=== PATIENT | female | born 1980 ===

== ENCOUNTER 2017-01-04 01:01 | Emergency (ER) | payer OTHER ==
[2017-01-04 01:36] VITALS: BP 102/61; PULSE 79; RESP 16; TEMP 98.6; O2SAT 100
[2017-01-04] MEDS ORDERED: Sodium Chloride 0.9% 1,000 ML IV STA (01:54)
[2017-01-04] MEDS ORDERED: Iohexol 240 (50 ml) PO ONE (02:03)
[2017-01-04 02:34] LABS: ALB/GLOB RATIO 1.3 (1.0-2.1); ALKALINE PHOSPHATASE 98 U/L (38-126); ALT/SGPT 44 U/L (9-52); AST/SGOT 30 U/L (14-36); BILIRUBIN,TOTAL 0.2 mg/dl (0.2-1.3); BLOOD UREA NITROGEN 9 mg/dl (7-17); CALCIUM 8.9 mg/dL (8.4-10.2); CARBON DIOXIDE 24 mmol/L (22-30); CHLORIDE 107 mmol/L (98-107); GFR AFRICAN-AMERICAN > 60; GLUCOSE,RANDOM 99 mg/dL (65-105); LIPASE 45 U/L (23-300); SODIUM 142 mmol/l (132-148); TOTAL PROTEIN 6.8 G/DL (6.3-8.2)
[2017-01-04 03:48] LABS: BASO % 0.5 % (0.0-2.0); EOS # 0.2 K/uL (0.0-0.7); EOS % 3.1 % (0.0-4.0); HEMATOCRIT 34.5 % (34.0-47.0); LYMPH # 1.6 K/uL (1.0-4.3); LYMPH % 20.7 % (20.0-40.0); MEAN CELL VOLUME 84.3 fl (81.0-99.0); MEAN CORPUSCULAR HGB CONC 34.4 g/dL (33.0-37.0); MEAN PLATELET VOLUME 9.1 fl (7.2-11.7); MONO # 0.8 K/uL (0.0-0.8); MONO % 10.5 % (0.0-10.0); NEUT # 5.1 K/uL (1.8-7.0); NEUT % 65.2 % (50.0-75.0); RED CELL DISTRIBUTION WIDTH 13.4 % (11.5-14.5); WHITE BLOOD COUNT 7.8 K/uL (4.8-10.8)
[2017-01-04 04:03] LABS: RBC URINE 4 /hpf (0-3); URINE BACTERIA RARE (<OCC); URINE BILIRUBIN NEGATIVE (NEGATIVE); URINE BLOOD SMALL (NEGATIVE); URINE COLOR YELLOW (YELLOW); URINE GLUCOSE (UA) NEG (Normal); URINE KETONE NEGATIVE (NEGATIVE); URINE LEUKOCYTE ESTERASE NEG Leu/uL (Negative); URINE PROTEIN 100 mg/dL (NEGATIVE); URINE UROBILINOGEN 0.2-1.0 mg/dL (0.2-1.0); WBC URINE 4 /hpf (0-5)
--- NOTE | 2017-01-04 04:11 | ED PDOC ---
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 She describes the pain as cramping and also complains of nausea, multiple episodes of non bloody non bilious vomiting, and non bloody diarrhea. Patient reports that she recently returned from a brief visit to [place], [place] and visited an urgent care yesterday upon worsening of symptoms. She claims that she was advised to come in to the ED for a CAT scan, but felt that it was over-zealous at the time. Patient also notes associated headache, fever, and chills and reports that symptoms have consistently worsened. She denies any further symptoms or complaints. PMD: Provider TBD, Past Medical History Reviewed: Historical Data, Nursing Documentation, Vital Signs Vital Signs: Last Vital Signs Temp 98.6 F 01/04/17 01:34 Pulse 79 01/04/17 01:34 Resp 16 01/04/17 01:34 BP 102/61 01/04/17 01:34 Pulse Ox 100 01/04/17 04:44 - Medical History PMH: [place]'s Syndrome - Surgical History Surgical History: Appendectomy - Family History Family History: States: No Known Family Hx - Social History Current smoker - smoking cessation education provided: No Alcohol: Social Drugs: Denies - Home Medications Home Medications: Ambulatory Orders Medication Instructions Recorded Dicyclomine [Bentyl] 20 mg PO Q12 PRN #20 tab 01/04/17 Ondansetron ODT [Zofran ODT] 4 mg PO Q6 PRN #16 odt 01/04/17 - Allergies Allergies/Adverse Reactions: Allergies Allergy/AdvReac Type Severity Reaction Status Date / Time No Known Allergies Allergy Verified 01/04/17 01:33 Review of Systems ROS Statement: Except As Marked, All Systems Reviewed And Found Negative Constitutional: Positive for: Fever, Chills Gastrointestinal: Positive for: Nausea, Vomiting, Abdominal Pain, Diarrhea Neurological: Positive for: Headache Physical Exam - Reviewed Nursing Documentation Reviewed: Yes Vital Signs Reviewed: Yes - Physical Exam Appears: Positive for: Uncomfortable Head Exam: Positive for: ATRAUMATIC, NORMOCEPHALIC Skin: Positive for: Normal Color, Warm, Dry Eye Exam: Positive for: Normal appearance, EOMI, PERRL ENT: Positive for: Other (mucous membranes tacky) Neck: Positive for: Normal, Painless ROM, Supple Cardiovascular/Chest: Positive for: Regular Rate, Rhythm. Negative for: Murmur Respiratory: Positive for: Normal Breath Sounds. Negative for: Respiratory Distress Gastrointestinal/Abdominal: Positive for: Tenderness (Diffuse tenderness) Back: Positive for: Normal Inspection. Negative for: L CVA Tenderness, R CVA Tenderness, Vertebral Tenderness Extremity: Positive for: Normal ROM. Negative for: Tenderness, Pedal Edema Neurologic/Psych: Positive for: Alert, Oriented (x3) - Laboratory Results Result Diagrams: 01/04/17 02:05 01/04/17 02:05 - ECG O2 Sat by Pulse Oximetry: 100 (RA) Pulse Ox Interpretation: Normal Medical Decision Making Medical Decision Making: Time: 01:39 Initial Impression: 36 y/o female with abdominal pain, vomiting, and diarrhea Initial Plan: -Labs -Urine -ED Urine Dipstick -Heplock Insertion -Urinalysis -Bentyl 20mg PO -Sodium Chloride 0.9% IV 1000ms/hr -Ketorolac 10mg IVP -Zofran 4mg IV 02:[address] after trail of medication on basis of WBC Orders: -CT Abdomen/Pelvis PO and IV Contrast -Iohexol 50ml PO 03:07 Labs reviewed and revealed no clinically significant abnormalities. Patient reports marked improvement in symptoms Given WBC count and resolution of symptoms, patient has declined CAT scan, and comits to return should she have any changes in symptoms Clinical Impression: Gastroenteritis Upon provider evaluation patient is medically stable, and requires no further treatment in the ED at this time. Patient will be discharged with Rx for Bentyl 20mg and Zofran ODT 4mg. Counseling was provided and all questions were answered regarding diagnosis. There is agreement to discharge plan. Return if symptoms persist or worsen. Scribe Attestation: Documented by Hortensia Elder, acting as a scribe for Luciano Dahl MD Provider Scribe Attestation: All medical record entries made by the Scribe were at my direction and personally dictated by me. I have reviewed the chart and agree that the record accurately reflects my personal performance of the history, physical exam, medical decision making, and the department course for this patient. I have also personally directed, reviewed, and agree with the discharge instructions and disposition. Disposition - Clinical Impression Clinical Impression: Gastroenteritis - Patient ED Disposition Is Patient to be Admitted: No - Disposition Disposition: Routine/Home Disposition Time: 03:00 Condition: IMPROVED Prescriptions: Dicyclomine [Bentyl] 20 mg PO Q12 PRN #20 tab PRN Reason: abdominal pain/diarrhea Ondansetron ODT [Zofran ODT] 4 mg PO Q6 PRN #16 odt PRN Reason: Nausea/Vomiting Instructions: Gastroenteritis (ED) Forms: [employer] (Lithuanian)
== END 2017-01-04 04:10 | disposition home or self-care (01) ==
LOC: H.ER 01:01
DX: K52.9 Noninfective gastroenteritis and colitis, unspecified (principal); E24.9 Cushing's syndrome, unspecified
CPT/HCPCS: 80053; 81003; 81025; 83690; 85025; 96361; 96374; 96375; 99283; J1885; J2405; J7040